=== PATIENT | male | born 1985 | race Caucasian/White ===

== ENCOUNTER → 2023-11-18 | Outpatient (CLI) | payer SELFPAY ==
[~2023-11-18] MED LIST: HYDACE5 PO; IBUP800 PO; PENVK500 PO; Pepcid40 MG PO; Zofran Odt4 MG SL
== END ==
LOC: LAB SHORT 13:34 → LAB 13:34
DX: G62.9 Polyneuropathy, unspecified (principal)
CPT/HCPCS: 82607; 82746